=== PATIENT | female | born 1965 | race Caucasian/White ===

== ENCOUNTER 2016-07-27 17:25 | Outpatient (CLI) | payer SELFPAY ==
[2016-05-19 20:05] VITALS: BP 156/86
[2016-07-27 17:40] LABS: eGFR (African) 29; eGFR (Non-African) 24
== END 2016-07-27 17:26 ==
LOC: LABRHC 17:25
PROVIDERS: ATTEND Family Medicine
DX: Z51.81 Encounter for therapeutic drug level monitoring (principal)
CPT/HCPCS: 80048

== ENCOUNTER 2016-07-29 22:14 | Emergency (ER) | payer SELFPAY ==
--- NOTE | 2016-07-29 23:29 | ED Physician Documentation ---
General Adult - HISTORIAN Historian: patient, paramedics - HPI Stated Complaint: N/V/D Chief Complaint: General Adult Additional Information: [id number] emesis dehydration fsbs at scene=[id number]-ems antelmo oral glucose 110 opn ed admission still nauseated lethargic slurred speech-alert coooperative sick for 2 days saw pcp 2d ago rec hosp but refused now worse Onset: days ago (3-4) Timing: worse Severity: moderate - ROS CONST: recent illness, weakness, chills CVS/RESP: none, cough. denies: shortness of breath GI/: abdominal pain, problems urinating, vomiting, nausea, diarrhea MS/SKIN/LYMPH: none - PAST HX Past History: other (dm 2 chf neuropathy pneumonia) Allergies/Adverse Reactions: Allergies Allergy/AdvReac Type Severity Reaction Status Date / Time No Known Allergies Allergy Verified 07/29/16 23:14 Home Medications: Ambulatory Orders Medication Instructions Recorded Oxycodone HCl 5 mg PO Q4 PRN av 06/27/15 - SOCIAL HX Smoking History: greater than 1 pack/day Alcohol Use: none Drug Use: methamphetamines (but none for 8-9 months) - FAMILY HX Family History: No - VITAL SIGNS Vital Signs: Vital Signs Temp Pulse Resp BP Pulse Ox 98.7 F 72 16 146/67 92 07/29/16 23:08 07/29/16 23:08 07/29/16 23:08 07/29/16 23:08 07/29/16 23:08 - REVIEWED ASSESSMENTS Nursing Assessment Reviewed: Yes Vitals Reviewed: Yes ED Results Lab/Radiology - Radiology Radiology Impressions: see lab markedly abnormal cxr= cardiomegally-no infiltrater seen - Orders Orders: ED Orders Category Date Time Status Place Saline Lock/IV Now Care 07/29/16 22:56 Active CHEST 1 VIEW [RAD] Stat Exams 07/29/16 Taken AMYLASE Routine Lab 07/29/16 23:17 Received ARTERIAL BLOOD GAS Stat Lab 07/29/16 Uncollected BMP Q1H Lab 07/29/16 23:16 Received BMP Q1H Lab 07/29/16 23:17 Received CBC/PLATELET/DIFF Routine Lab 07/29/16 23:17 Received CMP Routine Lab 07/29/16 23:17 Received DRUG SCREEN URINE MEDICAL ONLY Routine Lab 07/29/16 Ordered PT-INR Routine Lab 07/29/16 23:17 Received PTT Routine Lab 07/29/16 23:17 Received URINALYSIS Routine Lab 07/29/16 Ordered 0.9 % Sodium Chloride [Normal Saline] 1,000 ml Med 07/29/16 22:57 Active IV Q1H Ondansetron HCl/Pf [Zofran 4 mg/2 ml] Med 07/29/16 23:26 Once 4 mg IVP NOW ONE EKG WITH COMPARISON Stat Ther 07/29/16 Ordered General Adult Physical Exam - PHYSICAL EXAM GENERAL APPEARANCE: moderate distress EENT: eye inspection normal NECK: normal inspection, supple RESPIRATORY: wheezes, rales CVS: reg rate & rhythm, heart sounds normal ABDOMEN: soft, non-tender SKIN: warm/dry, cyanosis (slight), diaphoresis, mottled, pallor (sl;ight) EXTREMITIES: non-tender, normal range of motion, no evidence of injury, no edema (arms w/ multi sores poss needle sticks) NEURO: oriented X3, depressed mood/affect. No: mood/affect nml (speech slurred but coherent and ckooperative) Discharge Clincal Impression: uncontrolled diabetes, hypoxemia-renal failure, diabetic per neuropathy, Renal failure, Liver failure, MULTI SUBSTANCE ABUSE Home Medications: Ambulatory Orders Oxycodone HCl 5 mg PO Q4 PRN av 06/27/15 Comments: disc w;pt DR MADRID/[facility] [place] [facility] Condition: Fair Disposition: 02 XFER SHT-TRM HOSP Decision to Admit: [id number] Decision Time: 02:16
[2016-07-29] MEDS: ONDANSETRON HCL/PF 4 MG/ 2ML VIAL IVP ONE (23:30)
[2016-07-29] MEDS: 0.9 % SODIUM CHLORIDE 1,000 ML IV ONE (23:30)
[2016-07-29 23:33] LABS: BASOPHILS % 0.4 (0.0-1.5); MEAN CORPUSCULAR HEMOGLOBIN 24.8 pg (28.0-34.0)
[2016-07-29 23:36] LABS: EOSINOPHILS % 0.1 % (0.0-6.8); LYMPHOCYTES # 1.8 # k/uL (0.6-4.0); MONOCYTES # 0.8 # k/uL (0.0-0.9); NEUTROPHILS # 13.6 # k/uL (1.4-7.7); eGFR (African) 25; eGFR (Non-African) 21
[2016-07-30 00:42] LABS: MEAN CORPUSCULAR HEMOGLOBIN 24.8 pg (28.0-34.0)
[2016-07-30 00:55] LABS: eGFR (African) 28; eGFR (Non-African) 23
[2016-07-30] MEDS ORDERED: DEXTROSE 50% 50 ML DISP.SYRIN IVP ONE (01:18)
[2016-07-30] MEDS ORDERED: fentaNYL CITRATE/PF 100 MCG/ 2ML AMP ONE (01:19)
[2016-07-30] MEDS ORDERED: GABAPENTIN 100 MG CAPSULE ONE (01:19)
[2016-07-30] MEDS: fentaNYL CITRATE/PF 100 MCG/ 2ML AMP IVP ONE ×2 (01:20→01:59)
[2016-07-30] MEDS: 0.9 % SODIUM CHLORIDE 500 ML IV ONE (01:36)
[2016-07-30] MEDS: DEXTROSE 50% 50 ML DISP.SYRIN IVP PRN (01:37)
[2016-07-30] MEDS: GABAPENTIN 300 MG CAPSULE PO SCH (01:37)
[2016-07-30 05:10] VITALS: BP 109/67
--- NOTE | 2016-07-30 07:11 | Diagnostic Imaging Report ---
STACY SAPP [facility] [address] [facility] [address] [address] Report Submission Date: Jul 29, 2016 11:36:19 PM IT INVESTMENT/PORTFOLIO MANAGER Patient Study Name: LARISSA CHO Date: Jul 29, 2016 11:07:17 PM IT INVESTMENT/PORTFOLIO MANAGER Modality Type: CR Gender: F Description: CHEST : 69 Institution: [facility] Physician: STACY SAPP Chest - one-view Clinical history: Shortness of breath for 2 days. Findings: Examination of the chest single portable AP view 07/29/2016 2307 hours with comparison to examination of 05/19/2016 demonstrates cardiomegaly. The lungs are free of coalescent infiltrate. Monitor leads superimpose the chest. Impression: 1. Cardiomegaly. 2. No active disease. Electronically signed on Jul 29, 2016 11:36:19 PM IT INVESTMENT/PORTFOLIO MANAGER by: Dandy ADAMS
[2016-07-30 07:13] LABS: APPEARANCE,URINE CLEAR (CLEAR); COLOR,URINE AMBER (YELLOW); OCCULT BLOOD,URINE 2+ (NEGATIVE)
[2016-07-30 07:33] LABS: AMPHETAMINE NON NEGATIVE ng/mL (<1000); BARBITURATES NEGATIVE ng/mL (<300); CANNABINOIDS NEGATIVE ng/mL (<50); COCAINE NEGATIVE ng/mL (<150); METHAMPHETAMINE NON NEGATIVE ng/mL (<1000); METHYLENEDIOXYMETHAMPHETAMINE NEGATIVE ng/mL (<500)
[2016-07-30 07:35] LABS: PH BG VENOUS 7.15 (7.32-7.43)
[2016-07-30 07:37] LABS: PH BG VENOUS 7.19 (7.32-7.43)
[2016-07-30 09:39] LABS: MONOCYTES % 4 % (0-11); SEGMENTED NEUTROPHILS % 82 % (39-79)
== END 2016-07-30 02:45 | disposition short-term general hospital (02) ==
LOC: ED 22:14
DX: E11.649 Type 2 diabetes mellitus with hypoglycemia without coma (principal); E11.40 Type 2 diabetes mellitus with diabetic neuropathy, unspecified; E11.21 Type 2 diabetes mellitus with diabetic nephropathy; Z79.84 Long term (current) use of oral hypoglycemic drugs; K72.90 Hepatic failure, unspecified without coma; N19 Unspecified kidney failure; F19.10 Other psychoactive substance abuse, uncomplicated
CPT/HCPCS: 36415; 51701; 71010; 80048; 80053; 80377; 81002; 82150; 82805; 84484; 85025; 85610; 85730; 93005; J2405; J3010; J7030; J7060; 96361; 96374; 96375; 99284; G0481; S1016

== ENCOUNTER 2016-11-22 12:18 | Outpatient (CLI) | payer OTHER ==
[2016-11-22 12:40] LABS: BASOPHILS % 0.7 (0.0-1.5); EOSINOPHILS % 0.8 % (0.0-6.8); MEAN CORPUSCULAR HEMOGLOBIN 26.1 pg (28.0-34.0); MEAN CORPUSCULAR VOLUME 87.8 fl (80.0-100.0); MONOCYTES % 4.4 % (0.0-11.0); NEUTROPHILS # 6.3 # k/uL (1.4-7.7)
[2016-11-22 12:59] LABS: eGFR (African) > 60; eGFR (Non-African) > 60
== END 2016-11-22 12:20 ==
LOC: LAB 12:18
PROVIDERS: ATTEND Family Medicine
DX: D63.8 Anemia in other chronic diseases classified elsewhere (principal); N18.2 Chronic kidney disease, stage 2 (mild); E11.9 Type 2 diabetes mellitus without complications
CPT/HCPCS: 36415; 80053; 83036; 85025

== ENCOUNTER 2017-07-01 10:05 | Outpatient (CLI) | payer OTHER ==
[2017-07-01 10:35] LABS: BASOPHILS % 1.6 (0.0-1.5); EOSINOPHILS % 0.2 % (0.0-6.8); MEAN CORPUSCULAR HEMOGLOBIN 31.6 pg (28.0-34.0); MEAN CORPUSCULAR VOLUME 98.8 fl (80.0-100.0); MONOCYTES % 3.6 % (0.0-11.0); NEUTROPHILS # 5.9 # k/uL (1.4-7.7)
[2017-07-01 11:09] LABS: eGFR (African) 20; eGFR (Non-African) 17
--- NOTE | 2017-07-01 13:41 | Diagnostic Imaging Report ---
SHAYY PHILLIPS [facility] [address] [facility] [address] [place], [place]. [address] Report Submission Date: Jul 01, 2017 10:55:50 AM HOUSING OFFICER Patient Study Name: LARISSA CHO Date: Jul 01, 2017 10:31:10 AM HOUSING OFFICER Modality Type: CR Gender: F Description: CHEST : 69 Institution: [facility] Physician: SHAYY PHILLIPS Examination: PA and lateral chest. History: COUGH X 2 WEEKS, WHEEZING, COPD, CHF, SMOKER 32 YEARS (Hx) / COUGH, WHEEZING, COPD, CHF (DICOM Hx) / COUGH, WHEEZING, COPD, CHF (Pt comments) Comparison exam: 29 July 2016 Findings: PA lateral chest demonstrate a normal cardiac and mediastinal silhouette. Vascular calcifications involving the aortic arch. Mild parenchymal haziness involving the right cardiac margin which is due to a pectus excavatum identified on lateral view. No peripheral infiltrate. No blunting of the costophrenic margins. Osseous structures are appropriate for age. Impression: No acute appearing pulmonary process. Electronically signed on Jul 01, 2017 10:55:50 AM HOUSING OFFICER by: Omega ADAMS
== END 2017-07-01 10:06 ==
LOC: LAB 10:05
PROVIDERS: ATTEND Family Medicine
DX: I50.22 Chronic systolic (congestive) heart failure (principal); N28.9 Disorder of kidney and ureter, unspecified; R06.09 Other forms of dyspnea
CPT/HCPCS: 36415; 71020; 80053; 85025

== ENCOUNTER 2017-07-22 13:06 | Emergency (ER) | payer OTHER ==
[2017-07-22] MEDS ORDERED: LORazepam 2 MG/ML VIAL IVP ONE (13:32)
[2017-07-22 13:57] LABS: BASOPHILS % 0.6 (0.0-1.5); EOSINOPHILS % 0.5 % (0.0-6.8); MEAN CORPUSCULAR HEMOGLOBIN 31.2 pg (28.0-34.0); MEAN CORPUSCULAR VOLUME 96.7 fl (80.0-100.0); MONOCYTES % 6.2 % (0.0-11.0); NEUTROPHILS # 5.4 # k/uL (1.4-7.7)
[2017-07-22 14:20] LABS: eGFR (African) > 60; eGFR (Non-African) > 60
--- NOTE | 2017-07-22 15:40 | ED Physician Documentation ---
General Adult - HPI Stated Complaint: foot pain Chief Complaint: General Adult Further Comments: yes (52 year old female patient presents with complaints right toe "black". Patient cannot tell provider how long toe has been black. Patient states she was at [facility] at the begining of June "my kidney's shut down ".) - ROS CONST: recent illness (Flu - inpatient [facility]). denies: fever, sweating EYES/ENT: none CVS/RESP: none GI/: none MS/SKIN/LYMPH: other (right foot pain) NEURO/PSYCH: anxiety. denies: headache, fainting, dizziness, tingling, numbness , difficulty walking, difficulty with speech, depression - PAST HX Past History: none (patient cannot recall PMH - old records reviewed), COPD, other (anxiety, depression, CHF, ischemic bowel disease, ) Other History: diabetes Type 2 Allergies/Adverse Reactions: Allergies Allergy/AdvReac Type Severity Reaction Status Date / Time No Known Allergies Allergy Verified 07/22/17 13:32 Home Medications: Ambulatory Orders Medication Instructions Recorded Oxycodone HCl 5 mg PO Q4 PRN av 06/27/15 - SOCIAL HX Smoking History: cigarettes Drug Use: methamphetamines (history of abuse), other (polypharmacy abuse) - FAMILY HX Family History: No - VITAL SIGNS Vital Signs: Vital Signs Temp Pulse Resp BP Pulse Ox 99.0 F 119 H 20 164/82 94 07/22/17 13:17 07/22/17 13:17 07/22/17 13:17 07/22/17 13:17 07/22/17 13:17 - REVIEWED ASSESSMENTS Nursing Assessment Reviewed: Yes Vitals Reviewed: Yes Procedures Site: 4th toe Blade Size: 11 I & D Procedure: Chlorhexidine Progress: Black, scabbed area removed from right toe - patient tolerated well; difficulty being still Tissue culture obtained. large amount of non-viable tissue noted. Will refer to wound clinic or surgeon. Start broad spectrum antibiotic Black, scabbed area removed from great toe; pink Progress - Progress Progress: D Dimr negative. Patient needs ABIs and vascular consult. 1500 Call to [facility] - patient referral to acute care surgery for further wound management and evaluation of foot wounds ED Results Lab/Radiology - Lab Results Lab Results: Lab Results 07/22/17 07/22/17 07/22/17 13:50 13:50 13:50 WBC 8.40 K/ul K/ul (4.00-12.00) RBC 4.21 M/ul M/ul (3.90-5.20) Hgb 13.1 g/dL g/dL (12.0-16.0) Hct 40.7 % % (34.5-46.5) MCV 96.7 fl fl (80.0-100.0) MCH 31.2 pg pg (28.0-34.0) MCHC 32.3 g/dL g/dL (30.0-36.0) RDW 15.2 % H % (11.3-14.3) Plt Count 295 K/mm3 K/mm3 (130-400) Neut % (Auto) 64.7 % % (39.0-79.0) Lymph % (Auto) 25.8 % % (16.0-50.0) Douglas % (Auto) 6.2 % % (0.0-11.0) Eos % (Auto) 0.5 % % (0.0-6.8) Baso % (Auto) 0.6 (0.0-1.5) Neut # (Auto) 5.4 # k/uL # k/uL (1.4-7.7) Lymph # (Auto) 2.2 # k/uL # k/uL (0.6-4.0) Douglas # (Auto) 0.5 # k/uL # k/uL (0.0-0.9) Eos # (Auto) 0.0 # k/uL # k/uL (0.0-0.6) Baso # (Auto) 0.0 # k/uL # k/uL (0.0-0.5) Reactive Lymphs % 2.2 % % (0.0-5.0) Reactive Lymphs # 0.2 # k/uL # k/uL (0.0-0.8) D-Dimer 334 ng/mL ng/mL (6.0-682) Sodium 140 mmol/L mmol/L (136-145) Potassium 3.9 mmol/L mmol/L (3.5-5.1) Chloride 100 mmol/L mmol/L (98-107) Carbon Dioxide 29 mmol/L mmol/L (22-30) BUN 14 mg/dL mg/dL (7-17) Creatinine 0.60 mg/dL mg/dL (0.52-1.04) Estimated Creat Clear 103 Est GFR ( Amer) > 60 (60 - ) Est GFR (Non-Af Amer) > 60 (60 - ) Glucose 152 mg/dL H mg/dL (74-106) Calcium 9.0 mg/dL mg/dL (8.4-10.2) Total Bilirubin 0.9 mg/dL mg/dL (0.2-1.3) AST 31 U/L U/L (15-46) ALT 23 U/L U/L (13-69) Alkaline Phosphatase 100 U/L U/L (38-126) Total Protein 7.2 g/dL g/dL (6.3-8.2) Albumin 3.9 g/dL g/dL (3.5-5.0) - Orders Orders: ED Orders Category Date Time Status Place IV Lock 1T Care 07/22/17 13:26 Active FOOT 3 VIEWS OR MORE [RAD] Stat Exams 07/22/17 Ordered CBC/PLATELET/DIFF Stat Lab 07/22/17 13:50 Completed CMP Stat Lab 07/22/17 13:50 Completed D DIMER Stat Lab 07/22/17 13:50 Completed UA W/MICRO IF INDICATED Stat Lab 07/22/17 13:26 Ordered Urine drug screen [DRUG SCREEN URINE MEDICAL ONLY] Stat Lab 07/22/17 13:41 Ordered WOUND CULTURE Stat Lab 07/22/17 Uncollected LORazepam [Ativan] Med 07/22/17 13:32 Discontinued 1 mg IVP NOW ONE General Adult Physical Exam - PHYSICAL EXAM GENERAL APPEARANCE: moderate distress EENT: eye inspection normal, GUNNER RESPIRATORY: no resp distress, chest non-tender, breath sounds normal CVS: reg rate & rhythm, heart sounds normal, equal pulses, no murmur, no gallop , PMI nml, no JVD, no friction rub, 24 ABDOMEN: soft, no organomegaly, normal bowel sounds, no abdominal bruit, no distension SKIN: warm/dry, normal color, other (right foot -warm to touch; right great toe with .5 cm black scab on distal tip; right 4th toe with edema and erythem; distal end with 1.5 cm area of darkness and scab; purulent drainage. No wounds on left foot; clubbing of toes noted and extensive xerosis of feet. ) EXTREMITIES: non-tender, normal range of motion, other (right foot warm to touch ; mild erythema - DP 2+; PT 1+, cap refill prompt; clubbing of toes noted) NEURO: oriented X3, CN's nml as tested, motor nml, sensation nml, other (flight of ideas noted; patient denies thoughts of harming herself) Discharge Clincal Impression: Right 4h toe wound Open wound of right great toe Qualifiers: Encounter type: initial encounter Qualified Code(s): S91.101A - Unspecified open wound of right great toe without damage to nail, initial encounter Open wound of fourth toe of right foot Qualifiers: Encounter type: initial encounter Qualified Code(s): S91.104A - Unspecified open wound of right lesser toe(s) without damage to nail, initial encounter Referrals: Kota Zuniga MD [Primary Care Provider] - 2 Days Additional Instructions: 1. Clean your 4th toe and big toe wounds twice a day with the hibiclens soap you were discharged with 2. Rinse with water 3. Cover with dressing [facility] will call you on Tuesday to set up an appointment. Condition: Stable Disposition: HOME, SELF-CARE Decision to Admit: NO Decision Time: 15:39
[2017-07-22 16:56] VITALS: BP 140/65
--- NOTE | 2017-07-22 17:46 | Diagnostic Imaging Report ---
MIRTA BULLOCK (VACUUM FORMING MACHINE OPERATOR) - ER [facility] [address] [facility] [address] [address] Report Submission Date: Jul 22, 2017 2:51:08 PM AUTO APPRAISER Patient Study Name: LARISSA CHO Date: Jul 22, 2017 2:29:33 PM AUTO APPRAISER Modality Type: DX Gender: F Description: LOWER EXTREMITY : 69 Institution: [facility] Physician: MIRTA BULLOCK (VIVI) - ER Examination: Plain film right foot History: RT FOOT, WOUND ON 1ST TOE AND 4TH TOE, R/O OSTEOMYELITIS (Hx) Findings: 3 views of the right foot demonstrates normal cortical margins. Specifically the 1st and 4th digits without cortical irregularity. No fracture or dislocation. No soft tissue swelling. No joint effusion. Impression: No acute osseous process. No soft tissue abnormality. Electronically signed on Jul 22, 2017 2:51:08 PM AUTO APPRAISER by: Omega ADAMS
== END 2017-07-22 16:35 | disposition home or self-care (01) ==
LOC: ED 13:06
DX: S91.101A Unspecified open wound of right great toe without damage to nail, initial encounter (principal); S91.104A Unspecified open wound of right lesser toe(s) without damage to nail, initial encounter; E11.9 Type 2 diabetes mellitus without complications; J44.9 Chronic obstructive pulmonary disease, unspecified; I50.9 Heart failure, unspecified; F17.210 Nicotine dependence, cigarettes, uncomplicated; F19.11 Other psychoactive substance abuse, in remission; X58.XXXA Exposure to other specified factors, initial encounter; Y92.9 Unspecified place or not applicable; Y93.9 Activity, unspecified
CPT/HCPCS: 73630; 80053; 85025; 85379; 87070; 87186; J2060; 96374; 97597; 99283; S1016

== ENCOUNTER 2017-08-15 15:39 | Inpatient (IN) | payer OTHER ==
[2017-08-15] MEDS ORDERED: IPRATROPIUM/ALBUTEROL SULFATE 3 ML AMPUL.NEB NEB ONE (15:41)
[2017-08-15 16:11] LABS: BASOPHILS % 0.5 (0.0-1.5); EOSINOPHILS % 0.8 % (0.0-6.8); MEAN CORPUSCULAR HEMOGLOBIN 30.4 pg (28.0-34.0); MEAN CORPUSCULAR VOLUME 97.4 fl (80.0-100.0); MONOCYTES % 3.3 % (0.0-11.0); NEUTROPHILS # 12.4 # k/uL (1.4-7.7)
[2017-08-15 16:29] LABS: ABG BASE EXCESS 4.4 (-2 - +2); ABG PH 7.38 (7.35-7.45)
--- NOTE | 2017-08-15 16:40 | Diagnostic Imaging Report ---
MIRTA BULLOCK (LOCAL GOVERNMENT LEGISLATOR) - ER [facility] [address] [facility] [address] Report Submission Date: Aug 15, 2017 4:36:33 PM CDT Patient Study Name: LARISSA CHO Date: Aug 15, 2017 4:10:25 PM CDT Modality Type: DX Gender: F Description: CHEST : 69 Institution: [facility] Physician: MIRTA BULLOCK (LOCAL GOVERNMENT LEGISLATOR) - ER Examination: Portable chest History: Evaluate lungs. SHORTNESS OF AIR X 2 DAYS (Hx) Comparison exam: None available for direct review Findings: Single view of the chest demonstrates a normal cardiac and mediastinal silhouette. Mild parenchymal haziness involving the right minor fissure. Minimal blunting of the right costophrenic margin. Osseous structures are appropriate for age. Impression: Mild right midlung infiltrate with likely right base small effusion. Consider obtaining a formal PA and lateral film to better evaluate. Electronically signed on Aug 15, 2017 4:36:33 PM CDT by: Omega ADAMS
--- NOTE | 2017-08-15 16:43 | ED Physician Documentation ---
Dyspnea - HISTORIAN Historian: patient - HPI Stated Complaint: Shortness of Breath Chief Complaint: Wheezing Onset: days ago (2) Duration: continues in ED, worse Initiating Event: out of meds Severity: severe Exacerbated By: coughing Associated Symptoms: chills, fever Further Comments: yes (52 year old female patient presents with complaint of dyspnea. RR 30's on arrival with RA Sat 82%, patient extremely anxious. States she is out of all her medication, states she cannot go to her doctor's office because she owe's them money.) - ROS CONST: recent illness EYES/ENT: sore throat, nasal drainage, nasal congestion GI/: none. denies: abdominal pain, vomiting, nausea, diarrhea NEURO/PSYCH: denies: headache MS/SKIN/LYMPH: none - PAST HX Lung Disease: COPD Other History: other (anxiety, ischemic bowel disease, CRF, depression; right foot - toe wounds) Allergies/Adverse Reactions: Allergies Allergy/AdvReac Type Severity Reaction Status Date / Time No Known Allergies Allergy Verified 07/22/17 13:32 Home Medications: Ambulatory Orders Medication Instructions Recorded Oxycodone HCl 5 mg PO Q4 PRN av 06/27/15 Ipratropium/Albuterol Sulfate 3 ml NEB TID #25 ampul.neb 08/15/17 [Duoneb] Levofloxacin [Levaquin] 750 mg PO DAILY #7 tab 08/15/17 - SOCIAL HX Smoking History: cigarettes Drug Use: methamphetamines (history of abuse) - FAMILY HX Family History: none - VITAL SIGNS Vital Signs: Vital Signs Temp Pulse Resp BP Pulse Ox 98.1 F 125 H 40 H 159/99 80 L 08/15/17 15:40 08/15/17 15:40 08/15/17 15:40 08/15/17 15:40 08/15/17 15:40 - REVIEWED ASSESSMENTS Nursing Assessment Reviewed: Yes Vitals Reviewed: Yes Progress - Progress Progress: Patient was seen in ER on 07/22/17 did not follow up with [facility] for wound care. Patient states she has none of her medications and can't go to Dr Zuniga's office due to her bill. Patient states she has never had insulin at home. Yelling an 1725 Patient refuses admission for treatment of her pneumonia and restarting medications. Patient states she has a nebulizer at home and oxygen. Will restart her metformin and glipizide. Strongly advised patient to follow up with primary care. 1750 Patient now wants to be admitted. Call to Dr Zuniga, accepted for admission. ED Results Lab/Radiology - Lab Results Lab Results: Lab Results 08/15/17 08/15/17 08/15/17 16:05 16:05 15:40 WBC 15.40 K/ul H K/ul (4.00-12.00) RBC 4.84 M/ul M/ul (3.90-5.20) Hgb 14.7 g/dL g/dL (12.0-16.0) Hct 47.1 % H % (34.5-46.5) MCV 97.4 fl fl (80.0-100.0) MCH 30.4 pg pg (28.0-34.0) MCHC 31.2 g/dL g/dL (30.0-36.0) RDW 13.5 % % (11.3-14.3) Plt Count 325 K/mm3 K/mm3 (130-400) Neut % (Auto) 80.8 % H % (39.0-79.0) Lymph % (Auto) 13.1 % L % (16.0-50.0) Dent % (Auto) 3.3 % % (0.0-11.0) Eos % (Auto) 0.8 % % (0.0-6.8) Baso % (Auto) 0.5 (0.0-1.5) Neut # (Auto) 12.4 # k/uL H # k/uL (1.4-7.7) Lymph # (Auto) 2.0 # k/uL # k/uL (0.6-4.0) Dent # (Auto) 0.5 # k/uL # k/uL (0.0-0.9) Eos # (Auto) 0.1 # k/uL # k/uL (0.0-0.6) Baso # (Auto) 0.1 # k/uL # k/uL (0.0-0.5) Reactive Lymphs % 1.5 % % (0.0-5.0) Reactive Lymphs # 0.2 # k/uL # k/uL (0.0-0.8) pH 7.38 (7.35-7.45) pCO2 52 mmhg H mmhg (35-48) pO2 138 mmhg H mmhg (83-108) HCO3 32.4 Meq/L H Meq/L (21-28) ABG O2 Sat Calc/Alpesh 100 % % (93-100) ABG Base Excess 4.4 H (-2 - +2) Troponin I < 0.03 ng/mL L ng/mL (0.03-0.06) - Radiology Radiology Impressions: Examination: PA and lateral chest. History: Evaluate lung saldivar. Comparison exam: 15 August 2017 Findings: PA lateral chest demonstrate a normal cardiac and mediastinal silhouette. Right lower lung parenchymal haziness with mild thickening and blunting of the right costophrenic margin. Left hemithorax without focal infiltrative process. Osseous structures are appropriate for age. Impression: Right lower lung infiltrate/effusion. Electronically signed on Aug 15, 2017 5:19:55 PM CDT by: Omega Herzog - Orders Orders: ED Orders Category Date Time Status Arterial Blood Gas 1T Care 08/15/17 15:[address] IV Lock 1T Care 08/15/17 15:44 Active CHEST 1VIEW [RAD] Stat Exams 08/15/17 Taken CHEST 2VIEW [RAD] Stat Exams 08/15/17 16:39 Ordered ARTERIAL BLOOD GAS Routine Lab 08/15/17 15:40 Completed CBC/PLATELET/DIFF Stat Lab 08/15/17 16:05 Completed CMP Stat Lab 08/15/17 16:05 Received TROPONIN I (cTnI) Stat Lab 08/15/17 16:05 Completed UA W/MICRO IF INDICATED Stat Lab 08/15/17 15:44 Ordered Ipratropium/Albuterol Sulfate [Duoneb] Med 08/15/17 15:41 Discontinued 3 ml NEB .STK-MED ONE EKG WITH COMPARISON Stat Ther 08/15/17 15:44 Completed Dyspnea Physical Exam - EXAM General Appearance: moderate distress, anxious EENT: eye inspection normal, ENT inspection normal, pharynx normal, no signs of dehydration, GUNNER, no nystagmus, TM's nml Respiratory: no resp. distress, no pain on inspiration, decreased air movement ( right base), other (RR 30's on arrival; RA Sat 81%) CVS: no murmur, no gallop, no friction rub, pulses full, pulses equal, tachycardia Abdomen: non-tender, no organomegaly, no distention, no ascites Skin: color nml, no rash, warm, nml palp., dry Extremities: non-tender, normal range of motion, no evidence of injury, no edema , J, PRE OWNED SALES MANAGER Neuro/Psych: oriented x3, CN's nml as tested, motor nml, sensation nml, mood/ affect nml Discharge Clincal Impression: Non compliance w medication regimen Right lower lobe pneumonia Qualifiers: Pneumonia type: due to unspecified organism Qualified Code(s): J18.1 - Lobar pneumonia, unspecified organism Hyperglycemia due to type 2 diabetes mellitus Qualifiers: Diabetes mellitus residential insulin use: unspecified residential insulin use status Qualified Code(s): E11.65 - Type 2 diabetes mellitus with hyperglycemia Prescriptions: Ipratropium/Albuterol Sulfate [Duoneb] 3 ml NEB TID #25 ampul.neb Levofloxacin [Levaquin] 750 mg PO DAILY #7 tab Additional Instructions: 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 Wear your oxygen at 2L NC at all times. Make an appointment to see Dr Zuniga or the primary care doctor of your choice. Condition: Stable Disposition: ADMITTED INPATIENT Decision to Admit: [id number] Decision Time: 17:52
[2017-08-15 16:44] LABS: eGFR (Non-African) > 60
--- NOTE | 2017-08-15 17:29 | Diagnostic Imaging Report ---
MIRTA BULLOCK (DAIRY EQUIPMENT INSTALLER) - ER [facility] [address] [facility] [address] [place], [place]. [address] Report Submission Date: Aug 15, 2017 5:19:55 PM CDT Patient Study Name: LARISSA CHO Date: Aug 15, 2017 4:45:55 PM CDT Modality Type: DX Gender: F Description: CHEST : 69 Institution: [facility] Physician: MIRTA BULLOCK (VIVI) - ER Examination: PA and lateral chest. History: Evaluate lung saldivar. Comparison exam: 15 August 2017 Findings: PA lateral chest demonstrate a normal cardiac and mediastinal silhouette. Right lower lung parenchymal haziness with mild thickening and blunting of the right costophrenic margin. Left hemithorax without focal infiltrative process. Osseous structures are appropriate for age. Impression: Right lower lung infiltrate/effusion. Electronically signed on Aug 15, 2017 5:19:55 PM CDT by: Omega ADAMS
[2017-08-15] MEDS ORDERED: LEVOFLOXACIN 250MG/D5W 50ML 250 MG in PREMIX BAG 1 BAG IV ONE (17:52)
[2017-08-15] MEDS ORDERED: LEVOFLOXACIN 500MG/D5W 100ML 500 MG in PREMIX BAG 1 BAG IV ONE (17:52)
[2017-08-15] MEDS ORDERED: 0.9 % SODIUM CHLORIDE 1,000 ML IV ONE (17:53)
[2017-08-15] MEDS ORDERED: LEVOFLOXACIN 250MG/D5W 50ML 50 ML IV ONE (18:15)
[2017-08-15] MEDS ORDERED: LEVOFLOXACIN 500MG/D5W 100ML 100 ML IV ONE (18:16)
[2017-08-15] MEDS: 0.9 % SODIUM CHLORIDE 1,000 ML IV SCH (19:00)
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
[2017-08-15] MEDS ORDERED: CARVEDILOL 6.25 MG TABLET PO ONE (21:19)
[2017-08-15] MEDS: CARVEDILOL 12.5 MG TABLET PO SCH (21:33)
[2017-08-15] MEDS: IPRATROPIUM/ALBUTEROL SULFATE 3 ML AMPUL.NEB NEB SCH (21:33)
[2017-08-15] MEDS: LORazepam 1 MG TABLET PO PRN (21:33)
[2017-08-15] MEDS: ENOXAPARIN SODIUM 30 MG/0.3 ML DISP.SYRIN SQ SCH (21:40)
[2017-08-15] MEDS: FLUTICASONE/SALMETEROL 250-50 INHALER IH SCH (22:10)
[2017-08-15] MEDS: INSULIN REGULAR, HUMAN 100 UNIT/ML 3ML VIAL SQ SCH (22:28)
[2017-08-15] MEDS: glyBURIDE 5 MG TABLET PO SCH (22:33)
[2017-08-16 01:49] VITALS: BMI 18.6
[2017-08-16] MEDS ORDERED: CARVEDILOL 6.25 MG TABLET PO ONE (04:40)
[2017-08-16] MEDS: 0.9 % SODIUM CHLORIDE 1,000 ML IV SCH ×3 (05:48→22:14)
[2017-08-16] MEDS: FLUTICASONE/SALMETEROL 250-50 INHALER IH SCH ×2 (07:54→20:04)
[2017-08-16] MEDS: CITALOPRAM HYDROBROMIDE 20 MG TABLET PO SCH (07:56)
[2017-08-16] MEDS: glyBURIDE 5 MG TABLET PO SCH (07:56)
[2017-08-16] MEDS: CARVEDILOL 12.5 MG TABLET PO SCH ×2 (07:57→20:04)
[2017-08-16] MEDS: IPRATROPIUM/ALBUTEROL SULFATE 3 ML AMPUL.NEB NEB SCH ×4 (07:59→20:40)
[2017-08-16] MEDS: INSULIN REGULAR, HUMAN 100 UNIT/ML 3ML VIAL SQ SCH ×4 (09:50→20:05)
[2017-08-16 10:52] LABS: BASOPHILS % 0.4 (0.0-1.5); EOSINOPHILS % 1.3 % (0.0-6.8); MEAN CORPUSCULAR HEMOGLOBIN 30.4 pg (28.0-34.0); MONOCYTES % 3.7 % (0.0-11.0); NEUTROPHILS # 8.9 # k/uL (1.4-7.7)
[2017-08-16 11:00] LABS: eGFR (Non-African) > 60
[2017-08-16] MEDS ORDERED: LEVOFLOXACIN 500MG/D5W 100ML 100 ML IV ONE (12:24)
[2017-08-16] MEDS: LEVOFLOXACIN 500MG/D5W 100ML 500 MG in PREMIX BAG 1 BAG IV SCH (12:31)
[2017-08-16] MEDS ORDERED: cefTRIAXone SODIUM 1 GM VIAL ONE (12:33)
[2017-08-16] MEDS: LEVOFLOXACIN 250MG/D5W 50ML 250 MG in PREMIX BAG 1 BAG IV SCH (12:57)
[2017-08-16] MEDS: cefTRIAXone SODIUM 1 GM in 0.9 % SODIUM CHLORIDE 50 ML IV SCH (13:45)
--- NOTE | 2017-08-16 18:44 | Inpatient Progress Note ---
Subjective - Required Recertification Statement I anticipate X number of days because-include discharge plan: 2 - Review of Systems Events since last encounter: Asha spent much of the day today in bed and is not eating very much. She says that feels very weak but is breathing much better. General: Denies: Chills HEENT: Denies: Head Aches Pulmonary: Dyspnea, Cough Cardiovascular: Denies: Chest Pain Gastrointestinal: Nausea. Denies: Vomiting Genitourinary: Denies: Dysuria Musculoskeletal: Denies: Neck Pain, Shoulder Pain Neurological: Denies: Weakness, Numbness Objective - Exam Vitals and I&O: Vital Signs Temp 97.0 F L 08/16/17 14:00 Pulse 105 H 08/16/17 14:00 Resp 20 08/16/17 14:00 BP 126/77 08/16/17 14:00 Pulse Ox 100 08/16/17 14:00 Intake & Output 08/15/17 08/16/17 08/16/17 23:59 11:59 23:59 Intake Total 1900 2539 540 Output Total 202 Balance 1900 2337 540 Weight 50.672 kg Intake: IV 1900 1999 300 Left Hand 1399 300 Right Forearm 1900 600 Oral 540 240 Output: Urine 2 Stool 200 Other: Voiding Method Toilet Toilet Toilet # Voids 2 2 3 General: Alert, Oriented to Person, Oriented to Place, Thin HEENT: Atraumatic, PERRLA, Edentulous Neck: Supple, No JVD Lungs: Wheezes, Prolonged Expiration, Decreased Air Movement Cardiovascular: Regular rate Abdomen: Normal bowel sounds, Soft, Other (Ostomy is functioning well) Extremities: No clubbing, Other (No pulses. Feet are warmer than last night) Skin: Pale Neurological: Normal gait, Normal speech Psych/Mental Status: Mental status NL - Results Results: Laboratory Results WBC 11.60 K/ul (4.00-12.00) 08/16/17 10:35 RBC 4.68 M/ul (3.90-5.20) 08/16/17 10:35 Hgb 14.2 g/dL (12.0-16.0) 08/16/17 10:35 Hct 44.9 % (34.5-46.5) 08/16/17 10:35 MCV 96.0 fl (80.0-100.0) 08/16/17 10:35 MCH 30.4 pg (28.0-34.0) 08/16/17 10:35 MCHC 31.6 g/dL (30.0-36.0) 08/16/17 10:35 RDW 13.7 % (11.3-14.3) 08/16/17 10:35 Plt Count 331 K/mm3 (130-400) 08/16/17 10:35 Neut % (Auto) 76.8 % (39.0-79.0) 08/16/17 10:35 Lymph % (Auto) 16.3 % (16.0-50.0) 08/16/17 10:35 Ashley % (Auto) 3.7 % (0.0-11.0) 08/16/17 10:35 Eos % (Auto) 1.3 % (0.0-6.8) 08/16/17 10:35 Baso % (Auto) 0.4 (0.0-1.5) 08/16/17 10:35 Neut # (Auto) 8.9 # k/uL (1.4-7.7) H 08/16/17 10:35 Lymph # (Auto) 1.9 # k/uL (0.6-4.0) 08/16/17 10:35 Ashley # (Auto) 0.4 # k/uL (0.0-0.9) 08/16/17 10:35 Eos # (Auto) 0.2 # k/uL (0.0-0.6) 08/16/17 10:35 Baso # (Auto) 0.0 # k/uL (0.0-0.5) 08/16/17 10:35 Reactive Lymphs % 1.4 % (0.0-5.0) 08/16/17 10:35 Reactive Lymphs # 0.2 # k/uL (0.0-0.8) 08/16/17 10:35 pH 7.38 (7.35-7.45) 08/15/17 15:40 pCO2 52 mmhg (35-48) H 08/15/17 15:40 pO2 138 mmhg (83-108) H 08/15/17 15:40 HCO3 32.4 Meq/L (21-28) H 08/15/17 15:40 ABG O2 Sat Calc/Alpesh 100 % (93-100) 08/15/17 15:40 ABG Base Excess 4.4 (-2 - +2) H 08/15/17 15:40 Sodium 139 mmol/L (136-145) 08/16/17 10:35 Potassium 4.8 mmol/L (3.5-5.1) 08/16/17 10:35 Chloride 98 mmol/L (98-107) 08/16/17 10:35 Carbon Dioxide 29 mmol/L (22-30) 08/16/17 10:35 BUN 14 mg/dL (7-17) 08/16/17 10:35 Creatinine 0.50 mg/dL (0.52-1.04) L 08/16/17 10:35 Estimated Creat Clear 126 08/16/17 10:35 Est GFR ( Amer) > 60 (60-) 08/16/17 10:35 Est GFR (Non-Af Amer) > 60 (60-) 08/16/17 10:35 Glucose 122 mg/dL (74-106) H 08/16/17 10:35 Lactate 1.9 U/L (0.7-2.1) 08/16/17 10:35 Calcium 9.3 mg/dL (8.4-10.2) 08/16/17 10:35 Total Bilirubin 0.8 mg/dL (0.2-1.3) 08/15/17 16:05 AST 21 U/L (15-46) 08/15/17 16:05 ALT 23 U/L (13-69) 08/15/17 16:05 Alkaline Phosphatase 162 U/L (38-126) H 08/15/17 16:05 Troponin I < 0.03 ng/mL (0.03-0.06) L 08/15/17 16:05 Total Protein 7.8 g/dL (6.3-8.2) 08/15/17 16:05 Albumin 3.9 g/dL (3.5-5.0) 08/15/17 16:05 Assessment/Plan - Assessment/Plan (1) Right lower lobe pneumonia Status: Acute Current Visit: Yes Qualifiers: Pneumonia type: due to unspecified organism Qualified Code(s): J18.1 - Lobar pneumonia, unspecified organism Assessment: Have added ceftriaxone to antibiotics (2) PAD (peripheral artery disease) Status: Acute Current Visit: Yes Plan: Stable (3) Non compliance w medication regimen Status: Acute Current Visit: Yes (4) Chronic obstructive lung disease Status: Acute Current Visit: No Assessment: Encouraged smoking cessation Plan: nebulizer treatments (5) Depressive disorder Status: Acute Current Visit: No Assessment: have restarted SSRI (6) Smoker Status: Acute Current Visit: No (7) Uncontrolled diabetes mellitus Status: Acute Current Visit: No Qualifiers: Diabetes mellitus type: type 2 Diabetes mellitus complication status: without complication Diabetes mellitus long lines operator insulin use: unspecified intermediate insulin use status Qualified Code(s): E11.65 - Type 2 diabetes mellitus with hyperglycemia Assessment: LUCINDA/Mauricio
[2017-08-16] MEDS: ENOXAPARIN SODIUM 30 MG/0.3 ML DISP.SYRIN SQ SCH (20:06)
[2017-08-16] MEDS: LORazepam 1 MG TABLET PO PRN (20:09)
[2017-08-17] MEDS: INSULIN REGULAR, HUMAN 100 UNIT/ML 3ML VIAL SQ SCH ×4 (07:42→21:47)
[2017-08-17] MEDS: glyBURIDE 5 MG TABLET PO SCH (07:44)
[2017-08-17] MEDS: CARVEDILOL 12.5 MG TABLET PO SCH ×2 (08:57→21:25)
[2017-08-17] MEDS: CITALOPRAM HYDROBROMIDE 20 MG TABLET PO SCH (08:57)
[2017-08-17] MEDS: FLUTICASONE/SALMETEROL 250-50 INHALER IH SCH ×2 (08:57→21:25)
[2017-08-17] MEDS ORDERED: cefTRIAXone SODIUM 1 GM VIAL ONE (09:07)
[2017-08-17] MEDS: LEVOFLOXACIN 500 MG TABLET PO SCH (09:10)
[2017-08-17] MEDS: IPRATROPIUM/ALBUTEROL SULFATE 3 ML AMPUL.NEB NEB SCH ×4 (09:12→21:56)
[2017-08-17] MEDS: cefTRIAXone SODIUM 1 GM in 0.9 % SODIUM CHLORIDE 50 ML IV SCH (09:19)
[2017-08-17] MEDS: 0.9 % SODIUM CHLORIDE 1,000 ML IV SCH ×2 (11:37→21:26)
[2017-08-17] MEDS: LEVOFLOXACIN 250MG/D5W 50ML 250 MG in PREMIX BAG 1 BAG IV SCH (14:35)
[2017-08-17] MEDS: LEVOFLOXACIN 500MG/D5W 100ML 500 MG in PREMIX BAG 1 BAG IV SCH (14:36)
[2017-08-17] MEDS ORDERED: ONDANSETRON HCL/PF 4 MG/ 2ML VIAL IVP PRN (16:29)
--- NOTE | 2017-08-17 17:44 | Diagnostic Imaging Report ---
[facility]MED SURG~ [facility] [id number] [facility] [address] [place] [address]. [id number] ~ ~ ~ ~ Report Submission Date: Aug 17, 2017 2:23:26 PM CDT Patient ~ Study Name: LARISSA CHO ~ Date: Aug 17, 2017 1:56:16 PM CDT ~ Modality Type: DX Gender: F ~ Description: CHEST : 69 ~ Institution: [facility] Physician: [facility]/MED SURG ~ ~ ~ Examination: PA and lateral chest. History: CXR, F/U PNEUMONIA, OCCASIONAL COUGHING/ SOA, PRIOR FROM 08/15/17 (Hx) Comparison exam: 15 August 2017 Findings: PA lateral chest demonstrate a normal cardiac and mediastinal silhouette. Haziness involving the right lower lung has resolved. No blunting of the costophrenic margins or posterior sulci. Stable scarring inferolateral margin right upper lung. Osseous structures are appropriate for age. Impression: Resolved right lower lung pneumonia. ~ Electronically signed on Aug 17, 2017 2:23:26 PM CDT by: Omega ADAMS
[2017-08-17] MEDS: LORazepam 1 MG TABLET PO PRN (21:29)
[2017-08-17] MEDS: ENOXAPARIN SODIUM 30 MG/0.3 ML DISP.SYRIN SQ SCH (21:31)
[2017-08-18] MEDS ORDERED: ONDANSETRON HCL 4 MG TAB.RAPDIS ONE (06:00)
[2017-08-18] MEDS: 0.9 % SODIUM CHLORIDE 1,000 ML IV SCH (06:05)
[2017-08-18] MEDS: INSULIN REGULAR, HUMAN 100 UNIT/ML 3ML VIAL SQ SCH ×2 (07:49→11:50)
[2017-08-18] MEDS: glyBURIDE 5 MG TABLET PO SCH (07:50)
--- NOTE | 2017-08-18 08:13 | Inpatient Progress Note ---
Subjective - Required Recertification Statement I anticipate X number of days because-include discharge plan: 1 day - Review of Systems Events since last encounter: Patient states that she seemed to be improving. Patient stated her breathing seemed to be better. Patient has been able to take the oxygen off during the day and maintain SaO2 at an adequate level. Patient stated she is on chronic oxygen therapy at my time. Patient still does have a mild productive sounding cough but states that it is improved and appeared to be clearing. Patient denies any chest pain. Objective - Exam Vitals and I&O: Vital Signs Temp 96.9 F L 08/18/17 06:00 Pulse 94 H 08/18/17 06:00 Resp 18 08/18/17 06:00 BP 154/95 08/18/17 06:00 Pulse Ox 100 08/18/17 06:00 Intake & Output 08/17/17 08/17/17 08/18/17 11:59 23:59 11:59 Intake Total 2335 2468 1615 Output Total 200 Balance 2335 2268 1615 Intake: IV 5033 838 8293 Left Hand 4077 175 9762 Oral 360 1600 240 Output: Emesis 200 Other: Voiding Method Toilet Toilet # Voids 5 4 General: Alert, Oriented to Person, Oriented to Place, Cooperative Neck: Supple, No JVD Lungs: Normal air movement, Speaks full Sentences, Rales (mild bilateral basilar , R>L), Rhonchi (few on the right) Cardiovascular: Regular rate, Normal S1, Normal S2, No murmurs Abdomen: Normal bowel sounds, Soft, No tenderness, No hepatospenomegaly Extremities: No clubbing, No cyanosis, No edema Neurological: Normal gait, Cranial nerves 3-12 NL Psych/Mental Status: Mental status NL, Appropriate Affect - Results Results: Laboratory Results WBC 11.60 K/ul (4.00-12.00) 08/16/17 10:35 RBC 4.68 M/ul (3.90-5.20) 08/16/17 10:35 Hgb 14.2 g/dL (12.0-16.0) 08/16/17 10:35 Hct 44.9 % (34.5-46.5) 08/16/17 10:35 MCV 96.0 fl (80.0-100.0) 08/16/17 10:35 MCH 30.4 pg (28.0-34.0) 08/16/17 10:35 MCHC 31.6 g/dL (30.0-36.0) 08/16/17 10:35 RDW 13.7 % (11.3-14.3) 08/16/17 10:35 Plt Count 331 K/mm3 (130-400) 08/16/17 10:35 Neut % (Auto) 76.8 % (39.0-79.0) 08/16/17 10:35 Lymph % (Auto) 16.3 % (16.0-50.0) 08/16/17 10:35 Braxton % (Auto) 3.7 % (0.0-11.0) 08/16/17 10:35 Eos % (Auto) 1.3 % (0.0-6.8) 08/16/17 10:35 Baso % (Auto) 0.4 (0.0-1.5) 08/16/17 10:35 Neut # (Auto) 8.9 # k/uL (1.4-7.7) H 08/16/17 10:35 Lymph # (Auto) 1.9 # k/uL (0.6-4.0) 08/16/17 10:35 Braxton # (Auto) 0.4 # k/uL (0.0-0.9) 08/16/17 10:35 Eos # (Auto) 0.2 # k/uL (0.0-0.6) 08/16/17 10:35 Baso # (Auto) 0.0 # k/uL (0.0-0.5) 08/16/17 10:35 Reactive Lymphs % 1.4 % (0.0-5.0) 08/16/17 10:35 Reactive Lymphs # 0.2 # k/uL (0.0-0.8) 08/16/17 10:35 pH 7.38 (7.35-7.45) 08/15/17 15:40 pCO2 52 mmhg (35-48) H 08/15/17 15:40 pO2 138 mmhg (83-108) H 08/15/17 15:40 HCO3 32.4 Meq/L (21-28) H 08/15/17 15:40 ABG O2 Sat Calc/Alpesh 100 % (93-100) 08/15/17 15:40 ABG Base Excess 4.4 (-2 - +2) H 08/15/17 15:40 Sodium 139 mmol/L (136-145) 08/16/17 10:35 Potassium 4.8 mmol/L (3.5-5.1) 08/16/17 10:35 Chloride 98 mmol/L (98-107) 08/16/17 10:35 Carbon Dioxide 29 mmol/L (22-30) 08/16/17 10:35 BUN 14 mg/dL (7-17) 08/16/17 10:35 Creatinine 0.50 mg/dL (0.52-1.04) L 08/16/17 10:35 Estimated Creat Clear 126 08/16/17 10:35 Est GFR ( Amer) > 60 (60-) 08/16/17 10:35 Est GFR (Non-Af Amer) > 60 (60-) 08/16/17 10:35 Glucose 122 mg/dL (74-106) H 08/16/17 10:35 Estimat Average Glucose 212 mg/dL 08/16/17 15:20 Hemoglobin A1c 9.0 % (4.0-5.6) H 08/16/17 15:20 Lactate 1.9 U/L (0.7-2.1) 08/16/17 10:35 Calcium 9.3 mg/dL (8.4-10.2) 08/16/17 10:35 Total Bilirubin 0.8 mg/dL (0.2-1.3) 08/15/17 16:05 AST 21 U/L (15-46) 08/15/17 16:05 ALT 23 U/L (13-69) 08/15/17 16:05 Alkaline Phosphatase 162 U/L (38-126) H 08/15/17 16:05 Troponin I < 0.03 ng/mL (0.03-0.06) L 08/15/17 16:05 Total Protein 7.8 g/dL (6.3-8.2) 08/15/17 16:05 Albumin 3.9 g/dL (3.5-5.0) 08/15/17 16:05 Assessment/Plan - Assessment/Plan (1) Right lower lobe pneumonia Status: Acute Current Visit: Yes Qualifiers: Pneumonia type: due to unspecified organism Qualified Code(s): J18.1 - Lobar pneumonia, unspecified organism Assessment: Will continue at present medications. Patient may be ready for discharge. Will get a chest x-ray to reevaluate pneumonia. (2) COPD (chronic obstructive pulmonary disease) Status: Acute Current Visit: No Qualifiers: COPD type: COPD with acute exacerbation Qualified Code(s): J44.1 - Chronic obstructive pulmonary disease with (acute) exacerbation Assessment: Appears to be stable on her home medications. (3) Diabetes mellitus Status: Acute Current Visit: No Qualifiers: Diabetes mellitus type: type 2 Diabetes mellitus complication status: with hypoglycemia Diabetes mellitus complication detail: without coma Diabetes mellitus correction insulin use: with correction use Qualified Code(s): E11.649 - Type 2 diabetes mellitus with hypoglycemia without coma Assessment: Stable with blood sugars running in the mid 100 range. No hypoglycemic episodes noted.
[2017-08-18] MEDS: CITALOPRAM HYDROBROMIDE 20 MG TABLET PO SCH (09:31)
[2017-08-18] MEDS: FLUTICASONE/SALMETEROL 250-50 INHALER IH SCH (09:31)
[2017-08-18] MEDS: CARVEDILOL 12.5 MG TABLET PO SCH (09:31)
[2017-08-18] MEDS: LEVOFLOXACIN 500 MG TABLET PO SCH (09:32)
[2017-08-18] MEDS: cefTRIAXone SODIUM 1 GM in 0.9 % SODIUM CHLORIDE 50 ML IV SCH (09:33)
[2017-08-18] MEDS: IPRATROPIUM/ALBUTEROL SULFATE 3 ML AMPUL.NEB NEB SCH ×2 (10:09→13:53)
[2017-08-18 11:01] LABS: BASOPHILS % 0.5 (0.0-1.5); EOSINOPHILS % 1.6 % (0.0-6.8); MEAN CORPUSCULAR HEMOGLOBIN 30.2 pg (28.0-34.0); MEAN CORPUSCULAR VOLUME 94.8 fl (80.0-100.0); MONOCYTES % 3.2 % (0.0-11.0); NEUTROPHILS # 4.8 # k/uL (1.4-7.7)
[2017-08-18 11:22] LABS: eGFR (Non-African) > 60
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
[2017-08-18 14:52] VITALS: BP 155/81
== END 2017-08-18 17:10 | disposition home or self-care (01) | DRG 195 ==
LOC: ED 15:39 → SOUTH 18:10
PROVIDERS: ADMIT Family Medicine; ATTEND Family Medicine
DX: J18.9 Pneumonia, unspecified organism (principal); R09.02 Hypoxemia; J44.9 Chronic obstructive pulmonary disease, unspecified; F17.210 Nicotine dependence, cigarettes, uncomplicated; I73.9 Peripheral vascular disease, unspecified; F32.9 Major depressive disorder, single episode, unspecified; Z91.19 Patient's noncompliance with other medical treatment and regimen; E11.65 Type 2 diabetes mellitus with hyperglycemia; E78.5 Hyperlipidemia, unspecified; I50.9 Heart failure, unspecified
CPT/HCPCS: 36415; 36600; 71045; 71046; 80048; 80053; 82803; 83036; 83605; 84484; 85025; 87040; 93005; 94640; 94760; J0696; J1650; J1956; J2405; J7030; 96365; 99222; 99232; 99238; 99284; A9270; S1016

== ENCOUNTER 2018-01-25 10:20 | Emergency (ER) | payer SELFPAY ==
[2018-01-25 10:55] VITALS: BP 169/70
--- NOTE | 2018-01-25 11:01 | ED Physician Documentation ---
General Adult - HISTORIAN Historian: patient - HPI Stated Complaint: Colostomy bag broke Chief Complaint: General Adult Onset: hours (1) Timing: still present Further Comments: yes (She has a hole in her colostomy bag and she has no supplies at home) Last known Well Code/Unknown Code: Unknown - ROS CONST: no problems - PAST HX Past History: COPD, CHF, other (DM, ) Surgeries/Procedures: other (colostomy ) Allergies/Adverse Reactions: Allergies Allergy/AdvReac Type Severity Reaction Status Date / Time No Known Allergies Allergy Verified 01/25/18 10:55 - SOCIAL HX Smoking History: cigarettes - FAMILY HX Family History: No - VITAL SIGNS Vital Signs: Vital Signs Temp Pulse Resp BP Pulse Ox 98.3 F 72 16 169/70 96 01/25/18 10:30 01/25/18 10:30 01/25/18 10:30 01/25/18 10:30 01/25/18 10:30 - REVIEWED ASSESSMENTS Nursing Assessment Reviewed: Yes Vitals Reviewed: Yes General Adult Physical Exam - PHYSICAL EXAM GENERAL APPEARANCE: no distress EENT: eye inspection normal NECK: normal inspection RESPIRATORY: no resp distress, chest non-tender, breath sounds normal CVS: reg rate & rhythm, heart sounds normal, equal pulses, no murmur ABDOMEN: soft, other (new bag intact ) BACK: normal inspection SKIN: warm/dry, normal color EXTREMITIES: non-tender NEURO: oriented X3, CN's nml as tested, motor nml Discharge Clincal Impression: Colostomy complication Referrals: Kota Zuniga MD [Primary Care Provider] - 2 Days Comments: FOLLOW UP WITH YOUR PCP Condition: Stable Disposition: 01 HOME, SELF-CARE Decision to Admit: NO Date of Decison to Admit: 01/25/18 Decision Time: 11:02
== END 2018-01-25 11:05 | disposition home or self-care (01) ==
LOC: ED 10:20
DX: K94.00 Colostomy complication, unspecified (principal)
CPT/HCPCS: 99282

== ENCOUNTER 2018-02-04 08:11 | Emergency (ER) | payer SELFPAY ==
--- NOTE | 2018-02-04 08:20 | ED Physician Documentation ---
General Adult - HISTORIAN Historian: patient - HPI Stated Complaint: colostomy care she is out of supplies Chief Complaint: General Adult Onset: other (she has been out of supplies for over a month ) Timing: still present Severity: mild Further Comments: yes (she was here earilier in the week for the same issue - she is out of supplies. She did discuss at last visit it was an inusrance issue and she had the supplies ordered. Today she states she was to get the supplies yesterday and they did not arrive via the mail. She states she has the supplies ordered. She and I did discuss the importance of getting her own supplies. She does not have pain or any other issues that keep her from keeping the bag in place or her supplies intact. She has no other compliants) Last known Well Code/Unknown Code: Unknown - ROS CONST: no problems - PAST HX Past History: other (DM, COPD ) Allergies/Adverse Reactions: Allergies Allergy/AdvReac Type Severity Reaction Status Date / Time No Known Allergies Allergy Verified 02/04/18 08:59 - SOCIAL HX Smoking History: cigarettes Alcohol Use: none Drug Use: none - FAMILY HX Family History: No - VITAL SIGNS Vital Signs: Vital Signs Temp Pulse Resp BP Pulse Ox 169/70 01/25/18 11:05 - REVIEWED ASSESSMENTS Nursing Assessment Reviewed: Yes Vitals Reviewed: Yes Progress - Progress Progress: 0915: she was asking for a duoneb treatment due to not having any at home. she denies any shortness of air. No wheezing. DG General Adult Physical Exam - PHYSICAL EXAM GENERAL APPEARANCE: no distress EENT: eye inspection normal NECK: normal inspection RESPIRATORY: no resp distress, chest non-tender, breath sounds normal CVS: reg rate & rhythm, heart sounds normal, equal pulses ABDOMEN: soft, no distension, other (bag is off. Site looks without infection. No drainge ) SKIN: warm/dry, normal color EXTREMITIES: non-tender, normal range of motion, no evidence of injury, no edema NEURO: oriented X3, CN's nml as tested, motor nml, sensation nml, mood/affect nml, cognition normal Discharge Clincal Impression: Colostomy complication Referrals: Primary Doctor,No [Primary Care Provider] - 2 Days Comments: 1. PLEASE contact your colostomy company at order supplies 2. Keep supplies on hand 3. Notify PCP of needed supplies 4. Return to ER for any emergency needs Condition: Stable Disposition: 01 HOME, SELF-CARE Decision to Admit: NO Date of Decison to Admit: 02/04/18 Decision Time: 09:18
[2018-02-04 09:37] VITALS: BP 150/88
== END 2018-02-04 09:27 | disposition home or self-care (01) ==
LOC: ED 08:11
DX: K94.00 Colostomy complication, unspecified (principal)
CPT/HCPCS: 99283